=== PATIENT | male | born 2000 | race Hispanic/Latino ===

== ENCOUNTER 2023-04-16 21:03 | Emergency (ER) | payer MEDICAID, OTHER ==
[~2023-04-16] VITALS: Ht 185.4 cm; Wt 122.9 kg
[2023-04-16] MEDS ORDERED: AMOX1TAB16 PO (22:03)
[2023-04-16 22:21] VITALS: BP 119/71
[2023-04-16] MEDS ORDERED: TETANUS/DIPHTHERIA TOXOID [ADULT] 0.5 ML VIAL IM ONE ×2 (22:25→22:30)
== END 2023-04-16 22:38 | disposition home or self-care (01) ==
LOC: EDH 21:03
DX: M79.604 Pain in right leg (principal); M79.602 Pain in left arm; W55.01XA Bitten by cat, initial encounter; Y93.89 Activity, other specified; Y92.89 Other specified places as the place of occurrence of the external cause; Y99.8 Other external cause status
CPT/HCPCS: 90471; 90714